=== PATIENT | male | born 1965 | race Caucasian/White ===

== ENCOUNTER → 2018-12-12 | Outpatient (CLI) | payer BC ==
[~2018-12-12] MED LIST: AMO500 PO; AZI250 PO; BACDS PO; CAR3.125 PO; CEP500 PO; DILT240C2 PO; DILT240C4 PO; EDOX60TA PO; NO RTN MEDS; RIVA20TA PO
== END ==
LOC: US 00:44
PROVIDERS: ATTEND Internal Medicine
DX: I71.2 Thoracic aortic aneurysm, without rupture (principal); I48.91 Unspecified atrial fibrillation
CPT/HCPCS: 93306